=== PATIENT | male | born 1950 | race Caucasian/White ===

== ENCOUNTER 2021-02-01 18:49 | Emergency (ER) | payer OTHER, MEDICAID ==
[~2021-02-01] VITALS: Ht 182.9 cm; Wt 87.1 kg
[2021-02-01 19:23] VITALS: BP_SYST 135
--- NOTE | 2021-02-01 19:25 | NUR ---
Patient to ER bed 5 for evaluation. Side rails up. Assumed care.
--- NOTE | 2021-02-01 19:36 | NUR ---
VALORIE Tay at bedside examining patient.
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
--- NOTE | 2021-02-01 19:52 | NUR ---
Patient ambulated to radiology via , accompanied by staff.
--- NOTE | 2021-02-01 20:36 | NUR ---
Patient given written and verbal discharge instructions and verbalizes understanding. ER Dr. Branham discussed with patient the results and treatment provided. Patient in stable condition. Patient educated on pain management and to follow up with PMD. Pt. will use OTC Motrin at home for pain control. Pain Scale 3. Opportunity for questions provided and answered. Medication side effect fact sheet provided.
[2021-02-01 20:37] VITALS: BP_SYST 124
== END 2021-02-01 20:36 | disposition home or self-care (01) ==
LOC: SED 18:49
DX: S29.9XXA Unspecified injury of thorax, initial encounter (principal); J44.9 Chronic obstructive pulmonary disease, unspecified; V28.4XXA Motorcycle driver injured in noncollision transport accident in traffic accident, initial encounter; Y93.89 Activity, other specified; Y92.89 Other specified places as the place of occurrence of the external cause; Y99.8 Other external cause status
CPT/HCPCS: 71046-TC; 99284

== ENCOUNTER 2021-12-31 15:31 | Emergency (ER) | payer OTHER, MEDICAID ==
[~2021-12-31] VITALS: Ht 182.9 cm; Wt 81.6 kg
[2021-12-31 15:40] VITALS: BP_SYST 123
--- NOTE | 2021-12-31 15:47 | NUR ---
PT BIB FROM HOME. CC COUGH, DRY WITHOUT PRODUCTION. PT DENIES PHLEGM DENIES CHEST PAIN, DENIES SOB. RESP. EVEN AND UNLABORED. AAOX4, SKIN INTACT. IS BEDSIDE.
--- NOTE | 2021-12-31 15:47 | NUR ---
ER at bedside examining patient.
[2021-12-31] MEDS ORDERED: predniSONE 20 MG TABLET PO ONE (16:00)
[2021-12-31] MEDS ORDERED: IPRATROPIUM BROM 0.5 MG/2.5 ML VIAL.NEB (ATROVENT) INH ONE (16:00)
[2021-12-31] MEDS ORDERED: ALBUTEROL SULFATE 0.083% 2.5 MG/3 ML VIAL.NEB INH ONE (16:00)
[2021-12-31] MEDS ORDERED: PRED20TA PO (16:11)
[2021-12-31] MEDS ORDERED: ZIT250 PO (16:11)
[2021-12-31] MEDS ORDERED: AZITHROMYCIN 250 MG TABLET PO ONE (16:15)
[2021-12-31] MEDS ORDERED: D-ME120S20 PO (16:38)
[2021-12-31] MEDS ORDERED: ALBU8.5H8 INH (16:53)
--- NOTE | 2021-12-31 18:35 | NUR ---
Patient given written and verbal discharge instructions and verbalizes understanding. ER MD discussed with patient the results and treatment provided. Patient in stable condition. ID arm band removed. IV catheter removed intact and dressing applied, no active bleeding. Rx of ALBUTEROL, PROMETHAZINE, PREDNISONE, AND AZITHROMYCIN given. Patient educated on pain management and to follow up with PMD. Opportunity for questions provided and answered. Medication side effect fact sheet provided.
[2021-12-31 18:37] VITALS: BP_SYST 105
== END 2021-12-31 18:37 | disposition home or self-care (01) ==
LOC: SED 15:31
DX: J20.9 Acute bronchitis, unspecified (principal); R05.9 Cough, unspecified; J44.9 Chronic obstructive pulmonary disease, unspecified; F17.210 Nicotine dependence, cigarettes, uncomplicated; Z79.899 Other long term (current) drug therapy
CPT/HCPCS: 71045; 94640; 99283; Q0144; J7512; J7613